=== PATIENT | female | born 1945 | race Caucasian/White ===

== ENCOUNTER 2024-03-09 10:05 | Emergency (ER) | payer MEDICARE, SELFPAY ==
[2024-03-09 10:13] VITALS: BP 112/72; PULSE 92; RESP 18; TEMP 36.2; O2SAT 97
--- NOTE | 2024-03-09 10:50 | ED.EAR ---
HPI - Ear Problem General Time Seen by Provider: 10:50 Date Seen: 03/09/24 Chief complaint: Ear/Nose/Throat Problem Stated complaint: Ear infection/Dizziness Time Seen by Provider: 03/09/24 10:50 Source: patient and RN notes reviewed Mode of arrival: ambulatory Limitations: no limitations History of Present Illness HPI Narrative: Brielle is a very pleasant 78-year-old female with a history of epilepsy which she treats with marijuana, history of cerumen ear impactions with recent irrigation of her left ear who comes to the emergency room for evaluation of left ear pain and weakness on the left side. Patient notes that she had some weakness on her left arm and neck starting last SaturdayMarch 04. She also had ear pain at that time and was found to have an ear impaction and thus had her ear irrigated. She notes that the weakness in her left arm has continued. She initially describes this as an imbalance of energy. Her. She notes that she does feels off and she is paying particular attention to how she ambulates. She notes that her brother had a significant stroke and has been left with a speech deficit. She denies headache. She notes that she does not feel like her eyes are working correctly but has no loss of vision. She has not really had fever or chills. She just does not feel like herself. He denies fever, significant cough, rapid heart rate, irregular heart rate history of DVT or PE. Related Data Previous Rx's ?Medication ?Instructions ?Recorded ciprofloxacin 0.3 %-dexamethasone 4 drp Otic (ear-left) TID #7.5 mL 03/09/24 0.1 % ear drops,suspension Allergies Allergy/AdvReac Type Severity Reaction Status Date / Time wheat Allergy Unknown Verified 03/06/24 08:29 Review of Systems Status of ROS: Reports: 10 or more systems reviewed and unremarkable except as noted in History and below [facility] Social History Smoking Status: Never smoker Do you use any of these nicotine containing products: None Non-prescribed substance use: marijuana (any form) Non-prescribed substance use details: uses for epilepsy management Exam Narrative: Exam Narrative: Patient is alert and oriented. Very descriptive of her symptoms. EOM is full and pupils equal round and reactive. No nystagmus. Right TM is partially obscured by cerumen but is visualized and is normal. Left TM is visualized and is not erythematous but there is some debris in the ear canal along with some cerumen which is in the mid canal. Neck is supple without lymphadenopathy. Oral cavity with moist mucous membranes. Eyebrow raise smile symmetrical. Tongue is midline. Heart with regular rate and rhythm and lungs are clear bilaterally. Abdomen soft. Moving all extremities. Romberg is negative. Tkpcgt-tz-ptna intact. He strength is intact. NIH SS 0 Const: Vital Signs, click to edit/add: Vital Signs - 24 hr 03/09/24 10:13 03/09/24 13:29 Temperature 97.2 F L Pulse Rate [Pulse Oximeter] 92 80 Respiratory Rate 18 16 Blood Pressure [Ri ght Upper Arm] 112/72 120/70 Pulse Oximetry 97 98 Oxygen Delivery Me thod Room Air Room Air Documenting provider has reviewed patient's vital signs: yes Course Course ED Course: At this time I do suspect patient has otitis externa on the left. However her other symptoms especially her weakness and feeling off when ambulating or with vision he is concerning and I have spoken with Neurology about potential MRI. The suggestion is to proceed with brain MRI as well as neck and head angio. Patient is in agreement with this plan. Will also add labs and an EKG. Reevaluation(s) Reevaluation #1: Patient has been very patient in the ED. Vital Signs Vital signs: Initial Vital Signs Temperature 97.2 F L 03/09/24 10:13 Temperature Source Temporal Artery Scan 03/09/24 10:13 Pulse Rate 92 03/09/24 10:13 Pulse Rhythm Regular 03/09/24 10:13 Respiratory Rate 18 03/09/24 10:13 Blood Pressure 112/72 03/09/24 10:13 Blood Pressure Mean 85 03/09/24 10:13 Blood Pressure Position Sitting 03/09/24 10:13 Pulse Oximetry 97 03/09/24 10:13 Oxygen Delivery Method Room Air 03/09/24 10:13 Vital Signs Temperature 97.2 F L 03/09/24 10:13 Pulse Rate 92 03/09/24 10:13 Respiratory Rate 18 03/09/24 10:13 Blood Pressure 112/72 03/09/24 10:13 Pulse Oximetry 97 03/09/24 10:13 Oxygen Delivery Method Room Air 03/09/24 10:13 Temperature 97.2 F L 03/09/24 10:13 Pulse Rate 80 03/09/24 13:29 Respiratory Rate 16 03/09/24 13:29 Blood Pressure 120/70 03/09/24 13:29 Pulse Oximetry 98 03/09/24 13:29 Oxygen Delivery Method Room Air 03/09/24 13:29 Medical Decision Making MDM Narrative Medical decision making narrative: 1. Left otitis externa-will use Ciprodex drops 4 drops t.i.d. x7 days. Patient also received a hand written prescription for Augmentin 875 p.o. b.i.d. x7 days if she is not improved over the next 24 hours. 2. Left arm weakness-no significant weakness noted on exam and head MRI is reassuring with no evidence of stroke. Patient is happy with these results. I had the pleasure of speaking to Dr. Eldridge at [facility] in regards to this patient. 3. Disposition-home at this time. Return for worsening symptoms. Lab Data Lab results reviewed: Yes I reviewed the patient's lab results Labs: Lab Results 03/09/24 03/09/24 Range/Units 11:09 11:25 WBC 4.57 (4.50-11.00) K/uL RBC 4.14 (4.00-5.20) m/uL Hgb 13.0 (12.0-16.0) gm/dL Hct 39.5 (33.0-51.0) % MCV 95 (80-100) fL MCH 31 (26-34) pg MCHC 33 (32-36) gm/dL RDW Coeff of Bharti 12.6 (11.5-15.5) % Plt Count 140 (140-440) K/uL Neut % (Auto) 58.0 (42.0-72.0) % Lymph % (Auto) 28.9 (20-44) % [place] % (Auto) 11.8 H (0.0-11.0) % Eos % (Auto) 0.9 (0.0-7.0) % Baso % (Auto) 0.2 (0.0-3.0) % Neut # (Auto) 2.65 (1.7-7.0) K/uL Lymph # (Auto) 1.32 (0.90-2.90) K/uL [place] # (Auto) 0.50 (0.00-0.90) K/UL Eos # (Auto) 0.04 (0.00-0.50) K/uL Baso # (Auto) 0.01 (0.00-0.30) K/uL Abs Immat Gran (auto) 0.01 (0.00-0.30) K/uL Imm/Tot Granulo (auto) 0.2 % Sodium 139 (135-149) mmol/L Potassium 4.0 (3.6-5.1) mmol/L Chloride 108 (96-114) mmol/L Carbon Dioxide 23 (20-32) mmol/L Anion Gap 8 (7-15) mEq/L BUN 15 (7-30) mg/dL Creatinine 0.7 (0.5-1.5) mg/dL Estimated GFR 90 ml/min Glucose 114 (60-115) mg/dL Calcium 9.6 (8.4-10.6) mg/dL Total Bilirubin 0.4 (0.1-1.5) mg/dL AST 22 (12-35) U/L ALT 13 (4-35) U/L Alkaline Phosphatase 60 (40-150) U/L C-Reactive Protein 2.9 H (0.5-1.0) mg/dL Total Protein 7.1 (6.0-8.3) g/dL Albumin 4.2 (3.3-5.0) g/dL SARS-CoV-2 (PCR) Negative SARS-CoV-2 (Negative) Influenza Type A (PCR) Negative PCR FLU A (Negative) Influenza Type B (PCR) Negative PCR FLU B (Negative) RSV (PCR) Negative PCR RSV (Negative) POC Troponin I 0.00 L (0.01-0.04) ng/ml Imaging Data Chest x-ray: Attestation: I have reviewed the pertinent imaging results. My impression: I do not note any acute infiltrates. Radiologist's impression: Lung Volumes: Adequate inspiration. No significant atelectasis. Lungs: Vertically oriented retrocardiac central left basilar subsegmental atelectasis, new in the interval since the prior study. Differential diagnostic considerations include nonspecific minor fibrosis. Otherwise clear lungs. Pleura and Pleural spaces: No significant pleural effusion. No pneumothorax. Mediastinum: Normal cardiomediastinal silhouette. Bony Thorax and Soft Tissues: No significant incidental findings. IMPRESSION: No findings to explain the clinical history. Vertically oriented retrocardiac central left basilar subsegmental atelectasis, new in the interval since the prior study. Differential diagnostic considerations include nonspecific minor fibrosis. Otherwise clear lungs. MRI brain: Attestation: I have reviewed the pertinent imaging results. Radiologist's impression: Technique: MRI Head: Performed without and with intravenous contrast. MRA Head: Performed without IV contrast. MRA Neck: Performed without and with intravenous contrast. Contrast: 20 cc Dotarem. Comparison: None relevant available at the time of interpretation. Findings: MRI Head: The corpus callosum, pituitary gland clivus appear intact. Bagx-xh-ezhavdni degenerative change visualized upper cervical spine. There is no restricted diffusion. No intracranial hemorrhage. The ventricles are proportionate to the cerebral sulci. The 4th ventricle appears midline. The basal cisterns appear patent. No abnormal extra-axial fluid collection identified. Mild parenchymal volume loss. Scattered T2 FLAIR hyperintense foci within the subcortical and periventricular white matter, favored to represent chronic ischemic microvascular disease. There is no intracranial mass, abnormal mass-effect or midline shift identified. No abnormal enhancement. The orbits are preserved. Mucous retention cysts/polyps bilateral maxillary sinuses. MRA Head: The visualized first and second order intracranial vessels are unremarkable. No occlusion/filling defect or acquired arterial stenosis identified. No aneurysm or vascular malformation seen. MRA Neck: No evidence for hemodynamically significant internal carotid artery stenosis by NASCET criteria. The cervical segments of both vertebral arteries are patent. The visualized portions of the aortic arch, great vessel origins and proximal subclavian arteries are unremarkable. Impression: MRI Head: 1. No acute/subacute infarct. 2. Mild chronic ischemic microvascular disease. MRA Head: 1. No hemodynamically significant stenosis or occlusion. 2. No aneurysm. MRA Neck: 1. No evidence for hemodynamically significant ICA stenosis by NASCET criteria. ECG Data Attestation: I personally reviewed and interpreted this ECG as follows: Interpretation: By my read EKG shows sinus rhythm at a rate of 83. 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 WI and QT intervals within normal limits. Discharge Plan Discharge Clinical Impression: Acute otitis externa of left ear Qualifiers: Otitis externa type: unspecified type Qualified Code(s): H60.502 - Unspecified acute noninfective otitis externa, left ear Patient Disposition: Home, Self-Care Condition: Unchanged Additional Instructions: Suggest Ciprodex to the left ear 3 times daily for 7 days. Will also give you a prescription for Augmentin 875 p.o. b.i.d. for 7 days if you do not note improvement in the next 24 hours. Return to the emergency room for worsening pain, fever, new symptoms. Prescriptions: New ciprofloxacin-dexamethasone 0.3-0.1 % drops,suspension 4 drp Otic (ear-left) TID Qty: 7.5 1RF Follow Up/Referrals: Provider,Not a Local [Non-Staff] - Stand Alone Forms: [employer] Info Instructions
--- OUTSIDE RECORDS SUMMARY | 2024-03-09 11:24 | XMS_ITS | Clinical Summary ---
Author Organization [facility] Address [place], [place] [address] Care Team Providers Care School Lunch Monitor Name Role Phone Aashish Jessica Quyen DO Primary Care Provider [phone] Allergies Active Allergy Reactions Criticality Noted Date Comments Gluten Diarrhea 06/24/2023 Medications No known medications Active Problems Problem Noted Date Diagnosed Date Hyperlipidemia 10/25/2023 Epilepsy 10/23/2023 Overview (10/23/2023): Has been intolerant of gluten in capsules; manages with medical marijuana Osteopenia 10/23/2023 Gluten intolerance 06/24/2023 Encounters Date Type Department Care Team Description 03/09/2024 Nurse Triage [facility] [address] [place] [address] Shaqra, Jessica Quyen, DO Dizziness 02/24/2024 1:25 PM [employer] Phone Office Visit [facility] [address] [place] [address] Xavier Limon NP Eye Problem 02/24/2024 Travel 02/24/2024 Nurse Triage [facility] [address] [place] [address] Shaqra, Jessica Quyen, DO Eye Pain/problem 01/03/2024 Telephone [facility] [address] [place] [address] Shaqra, Jessica Quyen, DO Results 01/03/2024 Orders Only [facility] [address] [place] [address] Shaqra, Jessica Quyen, DO <No scans attached> 01/02/2024 8:45 AM CDT Orders Only [facility] [address] [facility] [address] Lab, [facility] 01/02/2024 Travel from Last 3 Months Immunizations Name Administration Dates Next Due Hepatitis A (Adult) 02/05/2017 Influenza, High-dose Quadriv alent Inactivated 04/05/2023 Influenza, IIV3 (Age 6-35 mos) 12/30/2008 Influenza, IIV4 01/12/2020,01/21/2019 Influenza, Injectable, Mdck, Quadrivalent, W/preservative 02/12/2018 Influenza,CCIIV4 PRESERV FREE 02/05/2017 Pneumococcal Poly,23-Valent (Pneumovax) 06/10/2019,06/14/2010 Pneumococcal conj 13-Valent (Prevnar 13) 02/05/2017 Tdap 06/27/2020, 3,06/14/2010,2008 Typhoid (injectable) 03/22/2017 Zoster (Shingrix-RZV, recombinant) 11/12/2020, Family History Medical History Relation Name Comments Stroke Brother Marfan syndrome Father Celiac disease Mother Osteoarthritis Mother Thyroid Disease Mother Cancer-colon Paternal Grandfather Diabetes Paternal Grandmother Multiple sclerosis Sister 1 Bipolar disorder Sister 2 Schizophrenia Sister 2 Cancer-breast No Family History Relation Name Status Comments Brother Father Mother Paternal Grandfather Paternal Grandmother Sister 1 Sister 2 Alive Social History Tobacco Use Types Packs/Day Years Used Date Smoking Tobacco: Never Smokeless Tobacco: Never Tobacco Cessation:Counseling Given: Not Answered Alcohol Use Standard Drinks/Week Comments Never 0 (1 standard drink = 0.6 oz pur e alcohol) PHQ-2 Answer Date Recorded PHQ-2 TOTAL SCORE 0 10/23/2023 Social Connections Answer Date Recorded Do you often feel lonely or isolated from those around you? 0 06/24/2023 Financial Resource Strain Answer Date R ecorded Difficulty of Paying Living Expenses 3 06/24/2023 Difficulty of Paying Living Expenses Not on file 06/24/2023 Food Insecurity Answer Date Recorded Do you worry your food will run out before you are able to buy more? 1 06/24/2023 Transportation Needs Answer Date Record ed Does lack of transportation keep you from medica l appointments? 1 06/24/2023 Does lack of transportation keep you from work, meetings or getting things that you need? 1 06/24/2023 Housing Stability Answer Date Recorded What is your housing situation today? 1 06/24/2023 Comments No Sex and Gender Information Value Date Recorded Sex Assigned at Not on file Legal Sex Female 3:12 PM CDT Gender Identity Not on file Sexual Orientation Not on file Obstetrics History Last Filed Vital Signs Vital Sign Reading Time Taken Comments Blood Pressure 119/86 11/28/2023 1:50 PM CDT Pulse 77 11/28/2023 1:50 PM CDT Temperature 36.7 C (98 F) 07/23/2023 1:06 PM CDT Respiratory Rate 12 01/08/2023 4:43 PM CDT Oxygen Saturation 97% 11/28/2023 1:50 PM CDT Inhaled Oxygen Concentration - - Weight 55.6 kg (122 lb 8 oz) 11/28/2023 1:50 PM CDT Height 164.8 cm (5' 4.88) 10/23/2023 9:14 AM CD T Body Mass Index 20.46 10/23/2023 9:14 AM CDT Plan of Treatment Health Maintenance Due Date Last Done Comments Hepatitis C screening for ag e 18-79 1965 DEXA/DXA scan for age 65+ 2012 RSV vaccine for adults or (1 - 1-dose 75+ series) 2022 Influenza for age 65+ 12/01/2023 04/05/2023 , 01/12/2020, 01/21/2019, Additional history exists BMI (ht and wt on same day) for age 18+ 10/22/2024 10/23/2023 Medicare Wellness for age 65+ 10/23/2024 10/23/2023 Depression screening for age 12+ 10/24/2024 10/25/2023, 10/25/2023, 10/24/2023, Additional history exists Tetanus booster 06/27/2030 06/27/2020, 03/02, 06/14/2010, Additional history exists Pneumococcal series for age 65+ Completed 06/10/2019, 02/05/2017, 06/14/2010 Tdap Completed 06/27/2020, 03/02, 06/14/2010, Additional history exists Zoster (shingles) series for age 50+ Completed 11/12/2020, 09/13/2020 COVID-19 vaccine series Completed 12/17/19, 02/13/2023, 08/28/2022, Additional history exists Procedures Procedure Name Priority Date/Time Associated Diagnosis Comments LIPID PANEL W REFLEX MEASURED LDL Routine 01/02/2024 8:59 AM CDT Hyperlipidemia, unspecified hyperlipidemia type from Last 3 Months Results * (ABNORMAL) LIPID PANEL W REFLEX MEASURED LDL (01/02/2024 8:59 AM CDT) CHOLESTEROL, TOTAL 204(H) <200 mg/dL [facility] HDL CHOLESTEROL 54 > OR = 50 mg/dL [facility] TRIGLYCERIDES 117 <150 mg/dL [facility] LDL-CHOLESTEROL 128(H) mg/dL (calc) [facility] Comment: Reference range: <100 Desirable range <100 mg/dL for primary prevention; <70 mg/dL for patients with CHD or diabetic patients with > or = 2 CHD risk factors. LDL-C is now calculated using the Venkatesh-Wolf calculation, which is a validated novel method providing better accuracy than the Friedewald equation in the estimation of LDL-C. Venkatesh SS et al. GAEL. 2013;310(19): 1370-9712 (http://education.[employer]/faq/WTN281) CHOL/HDLC RATIO 3.8 <5.0 (calc) [facility] NON HDL CHOLESTEROL 150(H) <130 mg/dL (calc) [facility] Comment: For patients with diabetes plus 1 major ASCVD risk factor, treating to a non-HDL-C goal of <100 mg/dL (LDL-C of <70 mg/dL) is considered a therapeutic option. Blood BLOOD SPECIMEN / Unknown 01/02/2024 8:59 AM CDT 01/02/2024 9:00 AM CDT Jessica Zendejas DO CHEMISTRY Final Result [facility] [address] [place] [address], [facility] [address] [place] [address] from Last 3 Months Insurance [facility] MR Care Teams School Lunch Monitor Relationship Specialty Start Date End Date Jessica Zendejas DO [address] [place] [address] PCP - General Family Practice 06/24/23
--- OUTSIDE RECORDS SUMMARY | 2024-03-09 11:24 | XMS_ITS | Patient Health Record ---
Author Organization [facility] Address [address] [place] [address] Care Team Providers Care Assembly Machine Tool Setter Name Role Phone None, No PCP Primary Care Provider Mayuri Lo Unavailable [phone] Chel Verdugo Unavailable [phone] Zuri Johnson Unavailable [phone] Allergies Allergen (clinical drug ingredient) Drug/Non Drug Allergy documented on EMR Reaction Allergy Type Onset Date Status Wheat Dextrin Unknown Drug Allergy Act dennis Reason For Referral No Information Social History Tobacco Use: Social History Observation Description Date Details (start date - stop date) Never Smoker NA - NA Tobacco Use/Smoking Question Answer Notes Are you a nonsmoker Alcohol Screen (Audit-C) Question Answer Notes Did you have a drink containing alcohol in the p ast year? No Points 0 Interpretation Negative Problems Problem Type SNOMED Code ICD Code Onset Dates Problem Status W/U Status Risk Notes Problem 295280027 POP-Q stage 2 cystocele (N81.10) Active confirmed Encounters Encounter Location Date Provider Diagnosis [facility] [address] [place] [address] 2023 Mayuri Rao Plan Of Treatment No Information Insurance Providers Payer Name Payer Address Payer Phone Subscriber Number Group Number Insured Name Patient Relationship to Insured Coverage Start Date Coverage End Date [facility] Medicare Advantage (Ins Bill) [address] [address] [place] [address] [id number] Caroline Alves Self - patient is the insured Medicare (Ins. Bill) [address], [place] [id number] Caroline Alves Self - patient is the insured Medical (General) History Medical History History ICD Code Arthritis Epilepsy / Seizures Pneumonia Surgical History Surgery Date(Month/Year) Surgery to get 1982
[2024-03-09 11:36] LABS: Basophils Absolute Auto 0.01 K/uL (0.00-0.30); Basophils Percent Auto 0.2 % (0.0-3.0); Eosinophils Absolute Auto 0.04 K/uL (0.00-0.50); Eosinophils Percent Auto 0.9 % (0.0-7.0); Hematocrit 39.5 % (33.0-51.0); Immature Granulocytes Abs Auto 0.01 K/uL (0.00-0.30); Immature Granulocytes Pct Auto 0.2 %; Lymphocytes Absolute Auto 1.32 K/uL (0.90-2.90); Lymphocytes Percent Auto 28.9 % (20-44); Mean Corpuscular HGB Conc 33 gm/dL (32-36); Mean Corpuscular Hemoglobin 31 pg (26-34); Mean Corpuscular Volume 95 fL (80-100); Monocytes Percent Auto 11.8 % (0.0-11.0); Neutrophils Absolute Auto 2.65 K/uL (1.7-7.0); Platelet Count* 140 K/uL (140-440); RDW Coefficient of Variation % 12.6 % (11.5-15.5); Red Blood Count 4.14 m/uL (4.00-5.20); White Blood Count* 4.57 K/uL (4.50-11.00)
[2024-03-09 11:43] LABS: Slide Review Reflex No
[2024-03-09 11:52] LABS: Albumin* 4.2 g/dL (3.3-5.0); Chloride* 108 mmol/L (96-114)
[2024-03-09 11:53] LABS: Sodium* 139 mmol/L (135-149)
[2024-03-09 11:55] LABS: Bilirubin Total* 0.4 mg/dL (0.1-1.5); Creatinine* 0.7 mg/dL (0.5-1.5); Estimated Glomerular Filt Rate 90 ml/min
[2024-03-09 11:56] LABS: Alanine Aminotransferase* 13 U/L (4-35); Alkaline Phosphatase* 60 U/L (40-150); Anion Gap 8 mEq/L (7-15); Aspartate Amino Transferase* 22 U/L (12-35); Blood Urea Nitrogen* 15 mg/dL (7-30); Calcium* 9.6 mg/dL (8.4-10.6); Carbon Dioxide* 23 mmol/L (20-32); Glucose* 114 mg/dL (60-115); Total Protein* 7.1 g/dL (6.0-8.3)
[2024-03-09 11:59] LABS: C Reactive Protein* 2.9 mg/dL (0.5-1.0)
--- NOTE | 2024-03-09 12:06 | CRLHL7_ITS ---
For Patients: As a result of the Century Cures Act, medical imaging exams and procedure reports are released immediately into your electronic medical record. You may view this report before your referring provider. If you have questions, please contact your health care provider. Indication: Left arm weakness. Technique: MRI Head: Performed without and with intravenous contrast. MRA Head: Performed without IV contrast. MRA Neck: Performed without and with intravenous contrast. Contrast: 20 cc Dotarem. Comparison: None relevant available at the time of interpretation. Findings: MRI Head: The corpus callosum, pituitary gland clivus appear intact. Lrrc-ug-ryoviyfr degenerative change visualized upper cervical spine. There is no restricted diffusion. No intracranial hemorrhage. The ventricles are proportionate to the cerebral sulci. The 4th ventricle appears midline. The basal cisterns appear patent. No abnormal extra-axial fluid collection identified. Mild parenchymal volume loss. Scattered T2 FLAIR hyperintense foci within the subcortical and periventricular white matter, favored to represent chronic ischemic microvascular disease. There is no intracranial mass, abnormal mass-effect or midline shift identified. No abnormal enhancement. The orbits are preserved. Mucous retention cysts/polyps bilateral maxillary sinuses. MRA Head: The visualized first and second order intracranial vessels are unremarkable. No occlusion/filling defect or acquired arterial stenosis identified. No aneurysm or vascular malformation seen. MRA Neck: No evidence for hemodynamically significant internal carotid artery stenosis by NASCET criteria. The cervical segments of both vertebral arteries are patent. The visualized portions of the aortic arch, great vessel origins and proximal subclavian arteries are unremarkable. Impression: MRI Head: 1. No acute/subacute infarct. 2. Mild chronic ischemic microvascular disease. MRA Head: 1. No hemodynamically significant stenosis or occlusion. 2. No aneurysm. MRA Neck: 1. No evidence for hemodynamically significant ICA stenosis by NASCET criteria. Dictated by Jem Oreilly MD @ 03/09/2024 3:30:47 PM (Electronically Signed)
[2024-03-09 12:12] LABS: PCR FLU A Negative PCR FLU A (Negative); PCR FLU B Negative PCR FLU B (Negative); PCR RSV Negative PCR RSV (Negative); SARS PCR* Negative SARS-CoV-2 (Negative)
--- NOTE | 2024-03-09 12:42 | CRLHL7_ITS ---
For Patients: As a result of the Century Cures Act, medical imaging exams and procedure reports are released immediately into your electronic medical record. You may view this report before your referring provider. If you have questions, please contact your health care provider. INDICATION: Left-sided weakness. COMPARISON: 02/14/2023 TECHNIQUE: 1 view. FINDINGS: Medical Devices: None. Lung Volumes: Adequate inspiration. No significant atelectasis. Lungs: Vertically oriented retrocardiac central left basilar subsegmental atelectasis, new in the interval since the prior study. Differential diagnostic considerations include nonspecific minor fibrosis. Otherwise clear lungs. Pleura and Pleural spaces: No significant pleural effusion. No pneumothorax. Mediastinum: Normal cardiomediastinal silhouette. Bony Thorax and Soft Tissues: No significant incidental findings. IMPRESSION: No findings to explain the clinical history. Vertically oriented retrocardiac central left basilar subsegmental atelectasis, new in the interval since the prior study. Differential diagnostic considerations include nonspecific minor fibrosis. Otherwise clear lungs. Dictated by Ector Banks MD @ 03/09/2024 1:44:29 PM (Electronically Signed)
[2024-03-09 13:29] VITALS: BP 120/70; PULSE 80; RESP 16; O2SAT 98
== END 2024-03-09 16:09 | disposition home or self-care (01) ==
PROVIDERS: Emergency Provider Family Medicine; PCP Family Medicine
DX: H60.502 Unspecified acute noninfective otitis externa, left ear (principal); R53.1 Weakness
CPT/HCPCS: 36415; 70544; 70549; 70553; 71045; 80053; 84484; 85025; 86140; 87631; 93005; 99284; 99285; A9575